=== PATIENT | male | born 1990 | race Two or more races ===

== ENCOUNTER 2023-10-26 12:13 | Emergency (ER) | payer OTHER ==
[~2023-10-26] VITALS: Ht 182.9 cm; Wt 81.2 kg
[2023-10-26] MEDS ORDERED: PREP (12:54)
== END 2023-10-26 14:38 | disposition home or self-care (01) ==
LOC: ER 12:15
DX: S92.911A Unspecified fracture of right toe(s), initial encounter for closed fracture (principal); W18.39XA Other fall on same level, initial encounter; Y93.89 Activity, other specified; Y92.89 Other specified places as the place of occurrence of the external cause; Z91.018 Allergy to other foods